=== PATIENT | female | born 1940 | race Caucasian/White ===

== ENCOUNTER 2017-06-23 19:16 | Emergency (ER) | payer OTHER ==
[~2017-06-23] VITALS: Ht 165.1 cm; Wt 210.0 kg
[~2017-06-23 19:16] MED LIST: ALBU8.5H8 PO; APIX5TAB PO; BENA5TAB2 PO; CEPH-368 PO; CHOL100012 PO; DIAZ5TAB PO; DIPHEN/ATROP PO; FLEC100T PO; FLUTICASONE NAS; FURO40TA6 PO; HYDR-3240 PO; LEVO200T5 PO; LEVO75TA5 PO; LOSA25TA5 PO; MAGN400O7 PO; METF10002 PO; METO50TA4 PO; OMEP-110 PO; POTA10TA12 PO; SULF500T36 PO; TRAM50TA2 PO
[2017-06-23 19:58] LABS: ASPARTATE AMINO TRANSFERASE 23 U/L (15-37); BLOOD UREA NITROGEN 14 mg/dL (7-18)
[2017-06-23 19:59] LABS: HEMOGLOBIN 10.5 g/dL (11.7-16.4); WHITE BLOOD COUNT 9.9 x10^3/uL (3.4-10)
[2017-06-23] MEDS ORDERED: SODIUM CHLORIDE FLUSH 10ML SYR IVF ONE (20:00)
[2017-06-23] MEDS ORDERED: SODIUM CHLORIDE 0.9% 1,000ML IVBOLUS ONE (20:00)
[2017-06-23 20:41] VITALS: BP 130/68
== END 2017-06-23 22:53 ==
LOC: ED 22:00
DX: R53.1 Weakness (principal); I10 Essential (primary) hypertension; E11.9 Type 2 diabetes mellitus without complications; I48.91 Unspecified atrial fibrillation; M06.9 Rheumatoid arthritis, unspecified; Z87.891 Personal history of nicotine dependence
CPT/HCPCS: 36415; 71010; 80053; 81003; 85025; 85610; 85730; 93005; 99285

== ENCOUNTER → 2018-01-08 | Outpatient (CLI) | payer OTHER | END | disposition home or self-care (01) | LOC: CVU 14:48 → EDSTATUS 15:00 | PROVIDERS: ATTEND Internal Medicine Cardiovascular Disease | DX: I35.0 Nonrheumatic aortic (valve) stenosis (principal); I10 Essential (primary) hypertension; E11.9 Type 2 diabetes mellitus without complications; Z87.891 Personal history of nicotine dependence | CPT/HCPCS: 93306 ==